=== PATIENT | female | born 1970 | race Caucasian/White ===

== ENCOUNTER 2017-03-05 10:32 | Outpatient (CLI) | payer MEDICARE, OTHER ==
[~2017-03-05] VITALS: Ht 172.7 cm; Wt 75.5 kg
[~2017-03-05 10:32] MED LIST: CELE100C85 PO; ESOM40CA PO; HYDR10TA PO; LAMO150T15 PO; LYRI100 PO; ROPI0.2530 PO; [UNRECOGNIZED DRUG - CODE] BC; [UNRECOGNIZED DRUG - CODE] TD
[2017-03-05 10:42] VITALS: Ht 172.7 cm; Wt 75.5 kg
[2017-03-05] MEDS ORDERED: SOMA5PEN2 SQ (10:42)
[2017-03-05] MEDS ORDERED: DIAZ-90 PO (10:42)
[2017-03-05] MEDS ORDERED: HYDR20TA PO (10:42)
[2017-03-05 10:43] VITALS: BP 123/71; PULSE 60; RESP 60
--- NOTE | 2017-03-05 11:17 | CONS ---
Date/Time of Note Date/Time of Note DATE: 03/05/17 TIME: 11:15 Assessment/Plan Assessment/Plan Additional Assessment/Plan [facility] INITIAL OUTPATIENT CONSULTATION NOTE DATE OF CONSULTATION: 03/05/2017 PLACE OF SERVICE: [facility] ASSESSMENT AND PLAN: A very-pleasant 46-year-old young lady with multiple comorbid issues presenting with what appears to be a temporary blockage of her common bile duct with likely a gallstone that has passed since. No surgically correctable abnormality seen in the liver or biliary system. No indication for acute surgical intervention. Explain all of the above in detail for the patient (no family present with the patient) who appeared to understand and agreed with the plans. With above assessment, I've recommended the followin. Follow-up with Dr. Coleman with repeat lab tests in a few weeks; agree with endoscopic ultrasound evaluation if laboratory values remain abnormal or new episode of LFT abnormality/symptoms develop 2. Follow-up with us as needed Thank you very much for having me involved in the care of this very pleasant patient and wonderful family. If you have any questions, please feel free to contact me at [phone]. Nature of presenting problem: Moderate severity Please note that, given the multiple number of diagnoses or management options, the extensive amount and/or complexity of data needed to be reviewed (more than 50 pages of typed records and multiple images were reviewed), and moderate to high risk of complications and/or morbidity or mortality, this qualifies as moderate complexity type of decision-making. Disclaimer: Inadvertent spelling and grammatical errors are likely due to EHR/ dictation software use and do not reflect on the quality of delivered patient care. Also, please note that the electronic time recorded on this node does not necessarily reflect the actual time of the visit. Updated clinical summary: A very-pleasant 46-year-old young lady with multiple comorbid issues presenting with what appears to be a temporary blockage of her common bile duct with likely a gallstone that has passed since. Comorbidities: 1. BMI 25.3 2.? Pseudotumor cerebri versus arachnoid cyst in 1989 3. CSF aspiration to attempt to reduce headaches in the 4. Cyst fenestration due to persistent headaches in 2002 complicated by meningitis 5. SOLE CEMENTER shunt 2011 with revision and replacement in 2014, July 25, 2015. 6. Multiple sclerosis 7. History of chronic pain syndrome. Fentanyl patch 200 mcg every 48 hours and baclofen. Status post rhizotomy in the past for cervical neck pain. 8. Status post cholecystectomy 9. Right total shoulder replacement 10. 11. 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 Endometriosis 13. Empty sella syndrome 14. Hypopituitarism July 2015 CONSULTATION REQUESTED BY: Lang Coleman MD HISTORY OF PRESENT ILLNESS: The patient is a very pleasant and unfortunate 46- year-old lady with multiple comorbid issues as outlined above whom we were kindly asked consult regarding management of her biliary system. Patient suffered acute rise in her bilirubin around October 2016 with documented hyperbilirubinemia of 5.1, alkaline phosphatase 230, AST 37, and ALT 62. This was associated with mild discomfort in the right upper quadrant and acholic stools and jaundice. Repeat liver tests in November 13 showed bilirubin of 2.2, alkaline phosphatase 185, AST 166 and ALT 233. At that time she also had an MRCP which demonstrated hepatomegaly and evidence of prior cholecystectomy but normal common bile duct and somewhat elongated but otherwise normal cystic duct. Patient has since had further laboratory values that show complete normalization of the liver function and injury parameters. She also has resolved her jaundice and no further changes in color of stool. She reports occasional abdominal discomfort symptoms. There is also occasional reported nausea and vomiting. No major changes in weight since the reported weight loss after her . Her appetite remains poor. No other major complaints other than her normal chronic complaints. ALLERGIES: Dilaudid, vancomycin (itch, relieved with Benadryl. No rash or respiratory distress) MEDICATIONS Documented in the electronic records and reviewed by me. Please see the electronic records for details. SOCIAL HISTORY: The patient lives with family. + Tob (previous cigarette smoker; currently uses marijuana); occasional ETOH;-IVDU FAMILY HISTORY: Sister with AML. Mother with ovarian cancer. There are no other significant medical, surgical or oncologic issues in the family as reported by the patient or reflected in the chart. REVIEW OF SYSTEMS: Other than mentioned above, there were no other pertinent positives or pertinent negatives in an otherwise complete 14 point review of systems. PHYSICAL EXAMINATION GENERAL: The patient appears to be a very pleasant lady of non- descent lying in bed, appearing stated age,] and otherwise in no acute distress. BMI: 25.3 VITAL SIGNS: AVSS (please also see auto important data if available as well as the electronic records) HEENT: Normocephalic and atraumatic. Extraocular muscles and hearing are grossly intact bilaterally and symmetrically. Sclerae are nonicteric. Oral cavity is clear; oral mucosa appear to be pink and moist. Dentition: Fair to poor. NECK: Supple. There is no lymphadenopathy or JVD. There is no submental, submandibular or supraclavicular lymphadenopathy. CHEST: Rises symmetrically with each breath; patient is breathing comfortably. There are no audible wheezes, rales or rhonchi on the gross exam. HEART: Pulse is regular and palpable on the right wrist. Capillary refill is normal. Carotid pulses are palpable bilaterally and symmetrically in the neck. EXTREMITIES: Lower extremities contain no pitting edema around the ankles bilaterally and symmetrically. ABDOMEN: Abdomen is soft, nontender and nondistended. No evidence of ascites, organomegaly, caput medusae, engorged subcutaneous veins, or other abnormalities. There are no peritoneal signs or guarding. SKIN: Appears to be pink and feels warm to touch. NEUROLOGIC: Awake, alert, and follows commands appropriately. LABORATORY DATA: Reviewed above IMAGING: See above and clinic chart. Please note that I've personally reviewed all pertinent available images and I agree in general with their overall reported findings. Consultation Date/Type/Reason Admit Date/Time Exam/Review of Systems Vital Signs Vitals Vital Signs Date Time Temp Pulse Resp B/P Pulse Ox O2 Delivery O2 Flow Rate FiO2 03/05/17 10:43 98.3 60 60 123/71 99 Room Air NIDA NDIAYE M.D. Mar 05, 2017 11:17
== END 2017-03-05 17:00 | disposition home or self-care (01) ==
LOC: HPC 10:32
PROVIDERS: ATTEND Transplant Surgery
DX: R10.11 Right upper quadrant pain (principal); R11.0 Nausea; R17 Unspecified jaundice; G35 Multiple sclerosis; G89.4 Chronic pain syndrome; E23.0 Hypopituitarism; Z80.41 Family history of malignant neoplasm of ovary
CPT/HCPCS: G0463

== ENCOUNTER 2018-03-14 19:40 | Emergency (ER) | END 2018-03-14 21:17 | disposition left against medical advice (07) ==

== ENCOUNTER 2018-04-17 08:37 | Emergency (ER) | END 2018-04-17 13:01 | disposition home or self-care (01) ==

== ENCOUNTER 2019-01-24 16:35 | Emergency (ER) | payer MEDICARE, OTHER ==
[~2019-01-24] VITALS: Ht 172.7 cm; Wt 81.9 kg
[~2019-01-24 16:35] MED LIST changes: -CELE100C85 PO; +DIAZ5TAB PO; -ESOM40CA PO; +HYDR20TA PO; -LAMO150T15 PO; +LAMO150T3 PO; +SOMA5PEN2 SQ
[2019-01-24 16:39] VITALS: BP 134/83; PULSE 83; RESP 18; Ht 172.7 cm; Wt 81.9 kg
[2019-01-25] MEDS ORDERED: MED4DP PO (07:34)
== END 2019-01-24 20:13 | disposition left against medical advice (07) ==
LOC: FTE 16:35
DX: Z53.21 Procedure and treatment not carried out due to patient leaving prior to being seen by health care provider (principal)

== ENCOUNTER 2019-01-25 03:04 | Emergency (ER) | payer MEDICARE, OTHER ==
[~2019-01-25] VITALS: Ht 172.7 cm; Wt 81.0 kg
[2019-01-25 03:06] VITALS: Ht 172.7 cm; Wt 81.0 kg
[2019-01-25] MEDS ORDERED: SOD CHLORIDE 0.9% 1,000 ML IV STA (04:03)
[2019-01-25] MEDS ORDERED: LORAZEPAM 2 MG INJ IV ONE (04:30)
[2019-01-25] MEDS ORDERED: METHYLPRED. NA SUCC 1,000 MG in DEXTROSE 5% 50 ML IVPB ONE (04:30)
--- NOTE | 2019-01-25 06:25 | ERD ---
ER Documentation Chief Complaint Chief Complaint BILATERAL FOOT PAIN X 4 DAYS. HPI This is a 48-year-old female with history of multiple sclerosis and arthritis who is brought in by ambulance from home with complaints of joint pain and lower extremity numbness for the past 4 days. Patient states she takes fentanyl and Percocet for pain but these have not been helping. She is also been applying CBD oil without any relief. She reports swelling to her right hand, bilateral lower extremities along with joint stiffness and pain. She also has multiple abrasions to her extremities but cannot recall how she got them. Denies any loss of bowel or bladder incontinence. Denies any changes in vision. ROS All systems reviewed and are negative except as per history of present illness. Medications Home Meds Reported Medications Diazepam* (Valium*) 5 Mg Tablet, 5 MG PO Q8 for MUSCLE SPASMS, TAB 03/05/17 Somatropin (NORDITROPIN FLEXPRO) 5 Mg/1.5 Ml Pen.injctr, 5 MG SQ 03/05/17 Hydrocortisone* (Cortef*) 20 Mg Tablet, 20 MG PO BID, #60 TAB 03/05/17 Ropinirole Hcl* (Requip*) 0.25 Mg Tablet, 0.25 MG PO TID 03/26/12 Hydrocortisone (Hydrocortisone) 10 Mg Tablet, 10 MG PO TID 03/26/12 Lamotrigine* (Lamictal*) 150 Mg Tablet, 150 MG PO BID 03/26/12 Pregabalin* (Lyrica*) 100 Mg Capsule, 100 MG PO BID 03/26/12 Fentanyl Citrate* (Fentora*) 800 Mcg Tablet.eff, 800 MCG BC Q6 03/26/12 Fentanyl Patch* (Fentanyl Patch*) 1 Patch .72 H Patch.td72, 1 PATCH TD DAILY 03/26/12 Allergies Allergies: Coded Allergies: hydromorphone HCl (Verified Allergy, Unknown, 04/17/18) morphine (Verified Allergy, Unknown, 04/17/18) vancomycin (Verified Allergy, Unknown, 04/17/18) PMhx/Soc History of Surgery: Yes (CHOLECYSTECTOMY, LUMBAR SHUNTS X5) Anesthesia Reaction: No Hx Neurological Disorder: Yes (BRAIN TUMOR, ARACHNOID CYST, HYPOPITUITARISM ) Hx Respiratory Disorders: No Hx Cardiac Disorders: No Hx Psychiatric Problems: No Hx Miscellaneous Medical Probl: Yes (MS) Hx Alcohol Use: No Hx Substance Use: Yes (MARIJUANA ) Hx Tobacco Use: No Smoking Status: Never smoker Physical Exam Vitals Vital Signs Date Temp Pulse Resp B/P (MAP) Pulse Ox O2 O2 Flow FiO2 Time Delivery Rate 01/25/19 98.0 98 18 116/69 95 03:06 (85) Physical Exam Const: + Anxious Head: Atraumatic Eyes: Normal Conjunctiva. EOMI. ENT: Normal External Ears, Nose and Mouth. Neck: Full range of motion. No meningismus. Resp: Clear to auscultation bilaterally Cardio: Regular rate and rhythm, no murmurs Skin: + Multiple abrasions to her bilateral upper and lower extremities. S welling of the right upper hand and bilateral feet, right greater than left. Back: + Pain with range of motion of her bilateral upper wrists and bilateral lower ankles. Sensation is grossly intact. Distal pulses intact. Cap refill less than 2 seconds. Ext: No cyanosis, or edema Neur: Awake and alert Psych: Normal Mood and Affect Result Diagram: 01/25/19 0434 01/25/19 0434 Results 24 hrs Laboratory Tests Test 01/25/19 04:34 White Blood Count 5.5 10^3/ul Red Blood Count 4.66 10^6/ul Hemoglobin 12.8 g/dl Hematocrit 40.2 % Mean Corpuscular Volume 86.3 fl Mean Corpuscular Hemoglobin 27.5 pg Mean Corpuscular Hemoglobin Concent 31.8 g/dl Red Cell Distribution Width 14.2 % Platelet Count 250 10^3/UL Mean Platelet Volume 10.5 fl Immature Granulocytes % 0.200 % Neutrophils % 25.1 % Lymphocytes % 50.1 % Monocytes % 20.4 % Eosinophils % 2.7 % Basophils % 1.5 % Nucleated Red Blood Cells % 0.0 /100WBC Immature Granulocytes # 0.010 10^3/ul Neutrophils # 1.4 10^3/ul Lymphocytes # 2.8 10^3/ul Monocytes # 1.1 10^3/ul Eosinophils # 0.2 10^3/ul Basophils # 0.1 10^3/ul Nucleated Red Blood Cells # 0.0 10^3/ul Sodium Level 143 mmol/L Potassium Level 3.9 mmol/L Chloride Level 109 mmol/L Carbon Dioxide Level 29 mmol/L Anion Gap 5 Blood Urea Nitrogen 10 mg/dl Creatinine 0.84 mg/dl Est Glomerular Filtrat Rate mL/min > 60 mL/min Glucose Level 103 mg/dl Calcium Level 9.3 mg/dl Current Medications Medications Dose Sig/Aneta Start Time Status Last (Trade) Ordered Route PRN Stop Time Admin Dose Reason Admin Sodium 1,000 ml @ Q1H STAT 01/25/19 DC 01/25/19 Chloride 1,000 mls/hr IV 04:03 01/25/19 04:26 05:02 50 ml @ ONCE ONCE 01/25/19 DC 01/25/19 Methylprednis 100 mls/hr IVPB 04:30 01/25/19 05:02 olone Sodium 04:59 Succinate 1000 mg/Dextrose Lorazepam 0.5 mg ONCE ONCE 01/25/19 DC 01/25/19 (Ativan) IV 04:30 01/25/19 04:26 04:31 Procedures/MDM LABS & DIAGNOSTIC IMAGING: CBC: no e/o of systemic infection or severe anemia BMP: no e/o severe acidosis, alkalosis, renal failure, diabetic ketoacidosis ED COURSE: The patient was given IV fluids, Ativan, 1 g of Solu-Medrol The medication was well tolerated and the patient had market improvement in symptoms. The patient remained stable throughout ED course. MEDICAL DECISION MAKING: This is a 48-year-old female with history of multiple sclerosis and arthritis who presents with an acute MS flare. She has no focal neurological deficits on physical exam. Her workup is unremarkable. Her symptoms improved after 1 g of Solu-Medrol. Recent guidelines suggest a 3-day course of IV steroids. I therefore recommended she return here for the next 2 days for another dose of Solu-Medrol, patient understands and agrees with plan. I discussed the importance of following up with a shipyard painter for further refill/adjustment of her pain medications. Strict return precautions were discussed. PRESCRIPTIONS: None, patient has Percocet and fentanyl at home. SPECIALIST FOLLOW UP RECOMMENDED: call specialist Departure Diagnosis: Primary Impression: Multiple sclerosis exacerbation Condition: Stable Patient Instructions: Understanding Multiple Sclerosis (MS), Chronic Pain Referrals: COMMUNITY CLINICS YOU HAVE RECEIVED A MEDICAL SCREENING EXAM AND THE RESULTS INDICATE THAT YOU DO NOT HAVE A CONDITION THAT REQUIRES URGENT TREATMENT IN THE EMERGENCY DEPARTMENT. FURTHER EVALUATION AND TREATMENT OF YOUR CONDITION CAN WAIT UNTIL YOU ARE SEEN IN YOUR DOCTORS OFFICE WITHIN THE NEXT 1-2 DAYS. IT IS YOUR RESPONSIBILITY TO MAKE AN APPOINTMENT FOR FOLOW-UP CARE. IF YOU HAVE A PRIMARY DOCTOR --you should call your primary doctor and schedule an appointment IF YOU DO NOT HAVE A PRIMARY DOCTOR YOU CAN CALL OUR PHYSICIAN REFERRAL HOTLINE AT IF YOU CAN NOT AFFORD TO SEE A PHYSICIAN YOU CAN CHOSE FROM THE FOLLOWING [facility] [address] [facility] [address] [facility] [address] [facility] [address] [facility] [address] [facility]. [facility] [address] [facility]. [facility] YOU HAVE RECEIVED A MEDICAL SCREENING EXAM AND THE RESULTS INDICATE THAT YOU DO NOT HAVE A CONDITION THAT REQUIRES URGENT TREATMENT IN THE EMERGENCY DEPARTMENT. FURTHER EVALUATION AND TREATMENT OF YOUR CONDITION CAN WAIT UNTIL YOU ARE SEEN IN YOUR DOCTORS OFFICE WITHIN THE NEXT 1-2 DAYS. IT IS YOUR RESPONSIBILITY TO MA KE AN APPOINTMENT FOR FOLOW-UP CARE. IF YOU HAVE A PRIMARY DOCTOR --you should call your primary doctor and schedule and appointment IF YOU DO NOT HAVE A PRIMARY DOCTOR YOU CAN CALL OUR PHYSICIAN REFERRAL HOTLINE AT . IF YOU CAN NOT AFFORD TO SEE A PHYSICIAN YOU CAN CHOSE FROM THE FOLLOWING [facility] INSTITUTIONS: [facility] [address] [place] [address] [facility] [address] [place] [address] [facility] [address] [place] [address] Additional Instructions: Return tomorrow for another dose of IV steroids. You must follow-up with your shipyard painter for further refills of your pain medications. Return here sooner for any fevers, joint stiffness, focal weakness or any other concerns. ELISSA FLANNERY PA-C Jan 25, 2019 06:15
[2019-01-25] MEDS ORDERED: MED4DP PO (07:34)
[2019-01-25] MEDS ORDERED: morphine 4 MG/ML VIAL IM STA (07:43)
[2019-01-25 08:16] VITALS: BP 116/67; PULSE 67; RESP 18
== END 2019-01-25 08:16 | disposition home or self-care (01) ==
LOC: FTE 03:04
DX: G35 Multiple sclerosis (principal)
CPT/HCPCS: 80048; 85025; J2060; J2270; J2930; J7030; 96372; 96374; 96375